=== PATIENT | female | born 1985 | race Caucasian/White ===

== ENCOUNTER → 2024-05-03 15:38 | Outpatient (REF) | payer OTHER, SELFPAY | LOC: WDC 15:38 | PROVIDERS: ATTENDING PHYSICIAN Obstetrics & Gynecology | DX: Z12.31 Encounter for screening mammogram for malignant neoplasm of breast (principal) | CPT/HCPCS: 77063; 77067 ==

== ENCOUNTER → 2024-05-08 08:49 | Outpatient (REF) | payer OTHER, SELFPAY | LOC: WDC 08:49 | PROVIDERS: ATTENDING PHYSICIAN Obstetrics & Gynecology | DX: R92.8 Other abnormal and inconclusive findings on diagnostic imaging of breast (principal) | CPT/HCPCS: 76642 ==

== ENCOUNTER → 2024-05-15 08:12 | Outpatient (REF) | payer OTHER, SELFPAY ==
--- NOTE | 2024-05-15 13:49 | OID.BR.INTR ---
[facility] Navigator - Initial
- -
Date of Contact: 05/15/24
Met with patient. Patient given written information on navigator services available at [facility]. Will follow up as needed per protocol.
== END ==
LOC: WDC 08:12
PROVIDERS: ATTENDING PHYSICIAN Obstetrics & Gynecology
DX: N63.12 Unspecified lump in the right breast, upper inner quadrant (principal)
CPT/HCPCS: 88305; 19083

== ENCOUNTER 2025-03-02 01:08 | Emergency (ER) | payer OTHER, SELFPAY ==
[2025-03-02 01:11] VITALS: BP 135/97
--- NOTE | 2025-03-02 03:00 | ED.GENMED ---
History of Present Illness
General
Chief Complaint: Musculo-Skeletal Complaint
Time Seen by Provider: 03/02/25 02:58
History of Present Illness
History of Present Illness:
TIME OF INITIAL EVALUATION
- 3 AM
REVIEW OF OLD RECORDS
- Denies any significant past medical history, I reviewed records, she was seen here in the past with an eye abrasion
Note:
CHIEF COMPLAINT(S)
Achiness and discomfort in both ankles.
HISTORY OF PRESENT ILLNESS
The patient is a 39-year-old female with a significant past medical history notable for prior eye abrasion. The patients primary concern is new-onset achiness and discomfort in both ankles, which began around 9 p.m. She described the pain as achy,
starting bilaterally in her ankles, and then progressing up her legs. The pain is more pronounced the further outward towards her toes and specifically noted on the external aspects. She reports feeling significant discomfort, although she denies
any pain above the knees. She attempted self-relief with Advil and rested briefly. Upon waking at 11 p.m., she noted the persistence of symptoms. She associates her current state with a recent (though unspecified) regimen of oral steroids for an
ongoing recovery from an ear infection. Her symptom presentation led to questions about potential blood flow issues, which were dismissed based on examination of her pulses, noted as strong and without concern for circulatory compromise. Mention was
made of recent epidural injections in her back, though the timing was unclear, potentially in January. There is no mention of blood work performed on prior visits.
PHYSICAL EXAM
-General: Well appearing in no distress
-HEENT: Moist oral mucosa
-Neurologic: Excellent strength all extremities, no obvious coordination deficits
-Psychiatric: Appropriate mental status, normal insight and judgement
-Extremities: Excellent perfusion to both feet, both feet are warm with excellent DP pulses, normal cap refill, she reports some vague discomfort to palpation which is relatively minor to the lateral midfoot bilaterally, there is no evidence of
cellulitis
-Skin: No rash, no lesions
EXTERNAL RECORDS REVIEWED
The patient was noted to have been seen previously for an eye abrasion, though further records were unremarkable for current condition.
PLAN
I plan to conduct basic blood work to rule out any underlying conditions, with emphasis on muscle enzyme levels such as creatine kinase, to explore the possibility of muscle-related pathology. The patient will receive intravenous fluids to
potentially alleviate cramping symptoms. Further, a single dose of Tordol, an anti-inflammatory medication, will be administered for pain management. Given the recent steroid use, a high white blood cell count is anticipated but not clinically
significant under these circumstances.
DIFFERENTIAL DIAGNOSIS
The Differential Diagnosis includes, in no particular order and is not limited to:
1. Reactive Arthritis
2. Viral Myositis
4. Serum Sickness
5. Post-Streptococcal Reactive Arthritis
6. Transient Synovitis
7. Rheumatic Fever
8. Septic Arthritis
9. Growing Pains
10. Trauma-Related Myositis
RADIOLOGY
- Not indicated
EKG
- Not indicated
LABS
- White count is at the high end of normal, of note the patient was recently on oral steroids for ear infection. Chemistries unremarkable, C-reactive protein is less than 5, CK level is normal.
UPDATE
- The patient was given IV fluids and Toradol. White count is reassuring. I see no clear evidence for cellulitis based on physical examination.
SUMMARY OF ENCOUNTER
The patient, a 39-year old female, presented to the emergency department with achiness and discomfort in both ankles. The symptoms were noted to have started around 9 p.m., with the pain initially felt bilaterally in her ankles and later progressing
up her legs. Circulatory issues were initially considered but dismissed after examination showed strong pulses. Blood work, including C-reactive protein and creatine kinase levels, was normal, ruling out significant inflammation or muscle breakdown
as alarmingly abnormal. The patients condition was not consistent with cellulitis, gout, or a blood clot. The patient was administered intravenous fluids and ketorolac (Toradol) for pain management.ear
ASSESSMENT
Based on the blood work and clinical presentation, the patient may have a form of synovitis or other non-specific inflammatory condition. Gout and infection have been largely ruled out given the nature of the symptoms and lab results.
EMERGENCY TREATMENTS ADMINISTERED
Intravenous fluids and a single dose of ketorolac (Toradol) for pain management were provided.
PLAN
Continue anti-inflammatory medications such as ibuprofen at home for symptom management. The patient advised taking 200 mg ibuprofen, three or four tablets every eight hours as needed, to achieve prescription strength.
INDEPENDENT REVIEW OF LABS AND INTERPRETATION OF TESTS
My independent review of C-reactive protein indicates that it is normal.
My independent review of creatine kinase indicates that it is normal.
My independent review of the CBC indicates that white blood cell count is on the higher side of normal, but still within normal limits.
PATIENT EDUCATION AND COUNSELING
I advised continuing the use of anti-inflammatory medications such as ibuprofen as previously done at home. The dosage should be adjusted to a prescription strength by taking more tablets as detailed.
MEDICATION RECONCILIATION
Ibuprofen: Advise taking 200 mg, three or four tablets every eight hours as necessary for pain relief.
MEDICAL DECISION MAKING
-Complexity of Data Reviewed:
Chronic conditions affecting care: History of ankle pain, previous eye abrasion.
Differential Diagnosis: Reactive Arthritis, Viral Myositis, Juvenile Idiopathic Arthritis, Serum Sickness, Post-Streptococcal Reactive Arthritis, Transient Synovitis, Rheumatic Fever, Septic Arthritis, Growing Pains, Trauma-Related Myositis.
-Data:
Category 1
My independent review of C-reactive protein, creatine kinase, and CBC is normal.
Category 2
Review of prior external notes regarding past medical history of eye abrasion.
-Risk:
Prescription drug management was engaged for continued use of ibuprofen. Discharge with continued outpatient management was considered adequate based on stable vitals and no acute findings in the evaluation.
DIAGNOSIS
Synovitis, M65.9 (synovitis and tenosynovitis, unspecified)
Past History
Past History
ED Past Medical History: None
Social History
Tobacco: Non-smoker
Personal:
Living: with family
Phy Exam
Physical Exam
Physical Exam:
See HPI
Course
Orders/Labs/Results
Orders:
Orders
03/02/25 03:04
0.9% Sodium Chloride 1000 ml [Nss] 1,000 ml IV BOLUS
Ketorolac [Toradol] 15 mg IV NOW STA
03/02/25 03:24
CRP [C-Reactive Protein] Urgent
Complete Blood Count/With Diff Urgent
Comprehensive Metabolic Panel Urgent
Total CK [Creatine Phosphokinase] Urgent
Abnormal Lab Results
03/02/25
03:24
RBC 2.91 L 10^6/uL
(4.20-5.40)
Hct 28.8 L %
(37.0-47.0)
MCH 45.7 H pg
(27.0-31.0)
MCHC 46.2 H g/dL
(33.0-37.0)
Abs Immat Gran (auto) 0.1 H 10^3/uL
(0-0.05)
Absolute Neuts (auto) 7.7 H 10^3/uL
(1.4-6.5)
Immature Gran % 0.9 H %
(0-0.5)
Neutrophils % 76.4 H %
(42.2-75.2)
Lymphocytes % 18.6 L %
(20.5-51.1)
Chloride 109 H mmol/L
(98-107)
BUN 19 H mg/dl
(7-17)
Glucose 142 H mg/dl
(70-99)
Alkaline Phosphatase 36 L U/L
(38-126)
03/02/25 03:24
03/02/25 03:24
Vital Signs
Initial and Last Documented VS:
Initial Vital Signs
Temp Pulse Resp BP Pulse Ox
37.1 C 102 16 135/97 97
03/02/25 01:11 03/02/25 01:11 03/02/25 01:11 03/02/25 01:03/02/25 01:11
Last Documented Vital Signs
Temp Pulse Resp BP Pulse Ox
37.1 C 102 16 135/97 97
03/02/25 01:11 03/02/25 01:11 03/02/25 01:11 03/02/25 01:11 03/02/25 03:00
*Pulse Oximetry
SaO2: 97
Patient hypoxic: no
*Critical Care Note
Total Time (30-74mins, 75-104mins- exclusive of procedures): Not Applicable
ED Attending Note
-
Portions of this chart may have been created with voice recognition software.� Occasional wrong word or��sound alike� substitutions may have occurred due to the inherent limitations of voice recognition software.
Discharge Plan
Departure
Prescriptions:
No Action
No Current Medications
0
Referrals:
Brian Pereira DO [Family Provider, Family Practice]
Interventions
Interventions:
*Risk Screen - Suicide Last Done: 03/02/25 01:11
*General Assessment Last Done: 03/02/25 02:18
*Neglect/Abuse Screening Last Done: 03/02/25 02:18
*ED- Fall Risk Assessment Last Done: 03/02/25 02:18
ED-Musculoskeletal Assessment Last Done: 03/02/25 02:18
Discharge Date and Time
Print Language: WOLOF
[2025-03-02] MEDS: TORADOL 15 MG IV (03:18)
[2025-03-02] MEDS: NSS 1000 IV (03:18)
[2025-03-02 03:33] LABS: Hematocrit 28.8 % (37.0-47.0); Hemoglobin 13.3 g/dL (12.0-16.0); Mean Corp Hgb Conc. 46.2 g/dL (33.0-37.0); Mean Corpuscular Volume 99.0 fL (81.0-99.0); Nucleated Red Blood Cells % 0 %; Platelet Count 254 10^3/uL (130-400); Red Cell Dist. Width 13.0 % (11.5-14.5)
[2025-03-02 03:46] LABS: ALT (SGPT) 24 U/L (0-35); AST (SGOT) 21 U/L (14-36); Albumin 4.6 g/dl (3.5-5.0); Alkaline Phosphatase 36 U/L (38-126); Blood Urea Nitrogen 19 mg/dl (7-17); Calcium 9.8 mg/dl (8.4-10.2); Carbon Dioxide 25 mmol/L (22-30); Chloride 109 mmol/L (98-107); Glucose 142 mg/dl (70-99); Potassium 4.8 mmol/L (3.5-5.1); Sodium 140 mmol/L (135-145); Total Protein 7.5 g/dl (6.3-8.2); eGFR > 60.00
[2025-03-02 03:56] LABS: C-Reactive Protein < 5.00 mg/L (0.0-10.00)
[2025-03-02 04:33] VITALS: BP 142/87
== END 2025-03-02 04:34 | disposition home or self-care (01) ==
LOC: EMR 01:08
PROVIDERS: EMERGENCY PHYSICIAN Emergency Medicine; FAMILY PHYSICIAN Family Medicine
DX: M65.90 Unspecified synovitis and tenosynovitis, unspecified site (principal); M25.572 Pain in left ankle and joints of left foot; M25.571 Pain in right ankle and joints of right foot
CPT/HCPCS: 96374; 99284; 80053; 82550; 85025; 86140

== ENCOUNTER → 2025-05-23 15:19 | Outpatient (REF) | payer OTHER, SELFPAY | LOC: WDC 15:19 | PROVIDERS: ATTENDING PHYSICIAN Obstetrics & Gynecology; FAMILY PHYSICIAN Family Medicine | DX: Z12.31 Encounter for screening mammogram for malignant neoplasm of breast (principal) | CPT/HCPCS: 77063; 77067 ==